=== PATIENT | male | born 1945 | race Caucasian/White ===

== ENCOUNTER 2020-08-26 16:58 | Outpatient (REF) | payer MEDICARE, OTHER, SELFPAY ==
[2020-08-26 19:01] LABS: CREATININE 2.9 mg/dL (0.70-1.30); Calcium 9.4 mg/dL (8.5-10.1); Chloride 112 mmol/L (98-107); Estimated GFR 21.26 (mL/min/1.73m2); Glucose 161 mg/dL (74-106); Sodium 140 mmol/L (136-145)
[2020-08-26 19:15] LABS: BUN 103 mg/dL (7-18)
[2020-08-26 19:16] LABS: Potassium 7.3 mmol/L (3.5-5.1)
== END 2020-08-26 16:59 | disposition home or self-care (01) ==
LOC: NCHCN 16:58
PROVIDERS: PCP Family Medicine; Visit Provider Family Medicine
DX: E78.5 Hyperlipidemia, unspecified (principal); E87.6 Hypokalemia
CPT/HCPCS: 80048